=== PATIENT | male | born 1980 | race Caucasian/White ===

== ENCOUNTER 2017-08-11 11:46 | Day surgery (SDC) | payer BC ==
[~2017-08-11 11:46] MED LIST: Clindamycin Phosphate in D5W 600 MG in Premix Bag 50 BAG IV ONE; Lactated Ringers 1,000 ML IV SCH; Lidocaine 2% 5 ML SDV ONE; Midazolam 1 MG/ML 2 ML SDV ONE; Propofol 200 MG/20 ML SDV ONE; fentaNYL 250 MCG/5 ML SDV ONE
[2017-08-11] MEDS ORDERED: Clindamycin Phosphate in D5W 50 ML ONE (11:48)
[2017-08-11] MEDS ORDERED: Bupivacaine 25%/EPINEPHrine/PF 30 ML ONE (12:09)
--- NOTE | 2017-08-11 12:13 | PCM.PREANE ---
Preanesthetic Assessment - Anesthesia/Transfusion/Family Hx Anesthesia History: No Prior Anesthesia Family History of Anesthesia Reaction: No Transfusion History: No Prior Transfusion(s) - Review of Systems General: No Symptoms Pulmonary: No Symptoms Cardiovascular: No Symptoms Gastrointestinal: No Symptoms Neurological: No Symptoms Other: Reports: None - Physical Assessment NPO Status Date: 08/11/17 NPO Status Time: 07:00 (clear liq only) Height: 1.78 m Weight: 87.543 kg ASA Class: 1 Mental Status: Alert & Oriented x3 Airway Class: Mallampati = 1 Dentition: Reports: Normal Dentition ROM/Head Extension: Full Lungs: Clear to Auscultation, Normal Respiratory Effort Cardiovascular: Regular Rate, Regular Rhythm - Allergies Allergies/Adverse Reactions: Allergies Allergy/AdvReac Type Severity Reaction Status Date / Time Penicillins Allergy Hives Verified 08/08/17 09:32 - Anesthesia Plan Pre-Op Medication Ordered: None - Acknowledgements Anesthesia Type Planned: MAC Pt an Appropriate Candidate for the Planned Anesthesia: Yes Alternatives and Risks of Anesthesia Discussed w Pt/Guardian: Yes Pt/Guardian Understands and Agrees with Anesthesia Plan: Yes PreAnesthesia Questionnaire Gastrointestinal History: Reports: Other (See Below) Other Gastrointestinal History: occasional heartburn Musculoskeletal History: Reports: Fracture Other Musculoskeletal History: hx fx wrist - Past Surgical History Head Surgeries/Procedures: Reports: None - SUBSTANCE USE Smoking Status *Q: Former Smoker Tobacco Use Within Last Twelve Months: No Days Per Week of Alcohol Use: 7 Number of Drinks Per Day: 3 Total Drinks Per Week: 21 Recreational Drug Use History: No - HOME MEDS Home Medications: Home Meds . [No Known Home Meds] 08/08/17 [History] - CURRENT (IN HOUSE) MEDS Current Meds: Current Medications Lactated Ringer's (Ringers, Lactated) 1,000 mls @ 125 mls/hr IV ASDIRECTED CAROLYN Lactated Ringer's (Ringers, Lactated) 1,000 mls @ 125 mls/hr IV ASDIRECTED CAROLYN Discontinued Medications Fentanyl (Sublimaze) Confirm Administered Dose 250 mcg .ROUTE .STK-MED ONE Stop: 08/11/17 08:48 Clindamycin Phosphate 600 mg/ (Premix) 50 mls @ 100 mls/hr IV ONETIME ONE Stop: 08/11/17 05:29 Clindamycin Phosphate (Cleocin In D5w) Confirm Administered Dose 50 mls @ as directed .ROUTE .STK-MED ONE Stop: 08/11/17 11:49 Bupivacaine HCl/Epinephrine Bitart (Sensorc Mpf 0.25%-Epi 1:[id number]) Confirm Administered Dose 30 mls @ as directed .ROUTE .STK-MED ONE Stop: 08/11/17 12:10 Lidocaine (Xylocaine-Mpf 2%) Confirm Administered Dose 10 ml .ROUTE .STK-MED ONE Stop: 08/11/17 08:47 Midazolam HCl (Versed 1 Mg/Ml) Confirm Administered Dose 2 mg .ROUTE .STK-MED ONE Stop: 08/11/17 08:48 Propofol (Diprivan 20 Ml) Confirm Administered Dose 400 mg .ROUTE .STK-MED ONE Stop: 08/11/17 08:48
[2017-08-11] MEDS ORDERED: Ketorolac 30 MG/ML SDV ONE (12:34)
[2017-08-11] MEDS ORDERED: Ondansetron 4 MG/2 ML SDV ONE (12:34)
[2017-08-11] MEDS ORDERED: Lidocaine 1% 20 ML MDV ONE (12:43)
[2017-08-11] MEDS ORDERED: fentaNYL 100 MCG/2 ML SDV IVPUSH PRN (13:37)
--- NOTE | 2017-08-11 13:52 | PCM.OPNOTE ---
- General Post-Op/Procedure Note Date of Surgery/Procedure: 08/11/17 Findings: 2.5 cm well encapsulated epidermal cyst; [id number] Pre Op Diagnosis: neck mass Post-Op Diagnosis: Same Anesthesia Technique: Local, MAC Primary Surgeon: Davy Bahena Pathology: sent Complications: None Condition: Good
[2017-08-11] MEDS ORDERED: Acetaminophen/oxyCODONE 325-5 MG Tab PO ONE (13:53)
--- NOTE | 2017-08-11 14:07 | PCM.POSTAN ---
POST ANESTHESIA ASSESSMENT - MENTAL STATUS Mental Status: Alert, Oriented - RESPIRATORY Respiratory Status: Respiratory Rate WNL, Airway Patent, O2 Saturation Stable - CARDIOVASCULAR CV Status: Pulse Rate WNL, Blood Pressure Stable - GASTROINTESTINAL GI Status: No Symptoms - POST OP HYDRATION Hydration Status: Adequate & Stable
--- NOTE | 2017-08-11 14:08 | PCM48HPAN ---
Post Anesthesia Note - EVALUATION WITHIN 48HRS OF ANESTHETIC Vital Signs in Normal Range: Yes Patient Participated in Evaluation: Yes Respiratory Function Stable: Yes Airway Patent: Yes Cardiovascular Function Stable: Yes Hydration Status Stable: Yes Pain Control Satisfactory: Yes Nausea and Vomiting Control Satisfactory: Yes Mental Status Recovered: Yes Resp Rate: 8
--- NOTE | 2017-08-11 14:29 | OR ---
SURGEON: Davy Bahena MD DATE OF PROCEDURE: 08/11/2017 PREOPERATIVE DIAGNOSIS: Right neck base mass at the back. POSTOPERATIVE DIAGNOSIS: Right neck base mass at the back. PROCEDURE PERFORMED: Excision biopsy. COMPLICATIONS: None. FINDINGS: A 2.5 cm well encapsulated sebaceous cyst with whitish material inside. Skin incision is 3.1 cm. PROCEDURE IN DETAIL: The patient was taken to the operating room, placed in supine position. Upon induction of mild general sedation, the patient repositioned with a almonte bag to the left decubitus position, left side down and right side up and the patient was then prepped and draped in sterile fashion. Time-out was being called, patient identified, procedure identified, and antibiotic given. Procedure was then started. The patient's right neck base was prepped and draped in a sterile fashion and using 1% lidocaine with epi, the area was anesthetized and using a 15 blade, a fish-mouth incision was made in the direction of the mass and it was then gently cut quite close to the mass and the whole thing with the skin was then excised and sent for pathology. Incisions were 1 cm and followed by extensive irrigation, closed with 3-0 Ethilon and Tegaderm dressing. He was repositioned into supine position and awakened and transferred, reconfirming in hemodynamically stable condition. The patient tolerated the procedure well. There were no intraoperative complications. Thank you for the kind referral. RICK GORDILLO /[id number]
== END 2017-08-11 14:45 | disposition home or self-care (01) ==
LOC: MW.SDS 11:46
PROVIDERS: ATTEND Surgery
DX: L72.3 Sebaceous cyst (principal)
CPT/HCPCS: 88304; J1885; J2250; J2405; J2704; J3010; J7120